=== PATIENT | male | born 1985 | race Caucasian/White ===

== ENCOUNTER 2023-09-29 16:18 | Emergency (ER) | payer BC, SELFPAY ==
[2023-09-29 16:33] VITALS: BP 150/104
[2023-09-29 18:41] VITALS: BP 143/90
[2023-09-29 19:00] VITALS: BP 143/90
--- NOTE | 2023-09-29 19:19 | ED.GENMED ---
History of Present Illness
General
Chief Complaint: Anal/Rectal Problem
Source: patient
Exam Limitations: none
Time Seen by Provider: 09/29/23 18:09
Nursing documentation reviewed up to this point in time: agreed with
Travel History
Have you had any contact with someone who has COVID-19?: No
Do you have any symptoms of coronavirus? Fever > 100 degrees, chills, cough, shortness of breath, sore throat, loss of taste or smell, muscle aches, or headache?: No
History of Present Illness
History of Present Illness:
37-year-old male with past medical history of alcohol abuse anxiety depression presenting to the emergency department with concerns of bleeding from rectum today red blood when wiping otherwise brown stool. Denies any significant abdominal pain
nausea vomiting or fevers. Patient claims that he is not seeking any specific detox or treatment for drinking at this time but does drink daily he is requesting to speak with [facility] prior to discharge.
Past History
Past History
ED Past Medical History: Psychiatric (Anxiety)
ED Past Surgical History: Orthopedic and Tonsilectomy
Social History
Tobacco: Non-smoker
Living: with family
Review of Systems
Review of Systems
Allergies reviewed?: Yes
All Other Systems: ROS reviewed and negative except as documented in HPI and ROS
Phy Exam
Physical Exam
Physical Exam:
GENERAL: Alert , in no apparent distress
EYE: pupils equal and reactive
NECK: Supple, no significant adenopathy.
ENT: o/p clr, mmm.
CARDIAC: Regular rate and rhythm .
LUNGS: Clear breath sounds bilaterally, no acute respiratory distress, no wheezes/rales/rhonchi
ABDOMEN: Rectal examination revealing a small right-sided external hemorrhoid with a small clot in the central portion no active bleeding stool was light brown and guaiac negative. Otherwise abdomen soft, without focal tenderness, no r/g, no cvat
NEUROLOGICAL: Alert and oriented, no focal neuro deficits
SKIN: Warm and dry, skin intact.
MUSCULOSKELETAL: No edema, well perfused.
PSYCH: Normal and appropriate interaction.
Course
Vital Signs
Initial and Last Documented VS:
Initial Vital Signs
Temp Pulse Resp BP Pulse Ox
98.8 F 90 18 150/104 96
09/29/23 16:33 09/29/23 16:33 09/29/23 16:33 09/29/23 16:33 09/29/23 16:33
Last Documented Vital Signs
Temp Pulse Resp BP Pulse Ox
98.8 F 90 18 150/104 96
09/29/23 16:33 09/29/23 16:33 09/29/23 16:33 09/29/23 16:33 09/29/23 16:33
MDM/Problems Addressed
MDM/Problems Addressed:
37-year-old male presenting to the emergency department today with concerns of rectal bleeding today. No abdominal pain no nausea no vomiting no light normal vitals upon arrival. Small hemorrhoid on exam otherwise stool guaiac negative. Bleeding
likely secondary to hemorrhoid otherwise patient stable for discharge patient is prior to discharge for resources for alcohol use disorder.
*Critical Care Note
Total Time (30-74mins, 75-104mins- exclusive of procedures): Not Applicable
ED Attending Note
-
Portions of this chart may have been created with voice recognition software.� Occasional wrong word or��sound alike� substitutions may have occurred due to the inherent limitations of voice recognition software.
Discharge Plan
Departure
Patient Disposition: Home (Routine Discharge)
Date of Disposition: 09/29/23
Time of Disposition: 19:19
Patient with high blood pressure during this ER visit?: No
Condition: Good
Covid-19: Not Applicable
Discharge Problem:
Hemorrhoid
Instructions: Hemorrhoids (DC)
Prescriptions:
New
Hemorrhoidal Ointment
1 applic NE Q8H PRN (Reason: hemorrhoids) Qty: 57 0RF
No Action
Celexa
1 tab PO DAILY
Referrals:
Frank Lira, [Family Provider] -
Activity Restrictions/Additional Instructions:
You came to the emergency department today with concerns of blood in your stool. You are found to have a hemorrhoid which is likely causing symptoms. Please use the ointment and follow-up closely with the primary care doctor for further
management. Return to the emergency department for any worsening, new or concerning symptoms.
Interventions
Interventions:
*Risk Screen - Suicide Last Done: 09/29/23 16:33
*General Assessment Last Done: 09/29/23 16:33
*Neglect/Abuse Screening Last Done: 09/29/23 16:33
*ED COVID-19 Vaccine History Last Done: 09/29/23 19:20
ED-Skin Assessment Last Done: 09/29/23 19:20
== END 2023-09-29 20:21 | disposition home or self-care (01) ==
LOC: EMR 16:18
PROVIDERS: EMERGENCY PHYSICIAN Emergency Medicine; FAMILY PHYSICIAN Internal Medicine
DX: K64.9 Unspecified hemorrhoids (principal); F32.A Depression, unspecified; F41.9 Anxiety disorder, unspecified
CPT/HCPCS: 99282